=== PATIENT | male | born 1985 | race Caucasian/White ===

== ENCOUNTER 2019-06-20 07:41 | Day surgery (SDC) | payer OTHER ==
[~2019-06-20] VITALS: Ht 175.3 cm; Wt 117.4 kg
[~2019-06-20 07:41] MED LIST: AMOX500 PO; ATOMOXETINE HCL80 MG PO; CONCERTA 54 MG; DOCU100 PO; HYDACE5 PO; IBUP200 PO; INDO25 PO; KETO10 PO; METF500C PO; NAPR500 PO; OXYACE5T PO; PENVK250 PO; PENVK500 PO; PROM25 PO; RXHYDACE PO; RXOXYACE PO; RXTRAM50 PO; SULTRIDS PO; THERA-D2000 UNIT PO; TRAM50 PO
== END 2019-06-20 10:55 | disposition home or self-care (01) ==
LOC: ORSCSDS 07:41
PROVIDERS: Student in an Organized Health Care Education/Training Program
PROC: 0DBE8ZX Excision of Large Intestine, Via Natural or Artificial Opening Endoscopic, Diagnostic (ICD-10-PCS; principal; 2019-06-20 10:45)
DX: K62.5 Hemorrhage of anus and rectum (principal); R19.7 Diarrhea, unspecified; K64.8 Other hemorrhoids; E11.9 Type 2 diabetes mellitus without complications; E66.01 Morbid (severe) obesity due to excess calories; Z68.41 Body mass index [BMI] 40.0-44.9, adult; Z79.84 Long term (current) use of oral hypoglycemic drugs; Z79.899 Other long term (current) drug therapy
CPT/HCPCS: 82947; 88305; J2704; J7120

== ENCOUNTER 2022-07-09 10:49 | Emergency (ER) | payer OTHER ==
[~2022-07-09] VITALS: Ht 175.3 cm; Wt 117.9 kg
[~2022-07-09 10:49] MED LIST changes: +IBUP800 PO; +LIDO700A20 TOP; +Seroquel Xr50 MG PO; +ZYRTEC10 M4 PO
[2022-07-09 12:30] LABS: C-REACTIVE PROTEIN, EXT RANGE 4.02 mg/dL (0.000-0.300)
[2022-07-09 12:31] LABS: Albumin/Globulin Ratio 0.9 (0.8-1.8); Bilirubin, Total 0.5 mg/dL (0.1-1.0); Bun/Creatinine Ratio 20.6 (12.0-20.0); Calcium, Blood 9.4 mg/dL (8.5-10.1); Creatinine, Blood 0.73 mg/dL (0.60-1.20); Globulin, Blood 4.6 g/dL (2.2-4.0); Potassium, Blood 4.2 mmol/L (3.5-5.5); Total Protein, Blood 8.6 g/dL (6.4-8.2)
[2022-07-09 12:48] LABS: BASOPHILS ABSOLUTE AUTO 0.07 K/mm3 (0.00-0.23); BASOPHILS PERCENT AUTO 1 % (0-2); EOSINOPHILS PERCENT AUTO 2 % (0-6); Hematocrit 43.7 % (37.0-53.0); Hemoglobin 14.6 g/dL (13.5-17.5); IMMATURE GRAN ABSOLUTE AUTO 0.03 K/mm3 (0.00-0.10); IMMATURE GRAN PERCENT AUTO 0 % (0-1); LYMPHOCYTES ABSOLUTE AUTO 2.74 K/mm3 (0.84-5.20); LYMPHOCYTES PERCENT AUTO 33 % (21-46); MONOCYTES ABSOLUTE AUTO 0.87 K/mm3 (0.16-1.47); MONOCYTES PERCENT AUTO 11 % (4-13); Mean Corpuscular HGB Conc 33.4 g/dL (31.5-36.5); Mean Corpuscular Volume 81 fL (80-100); NEUTROPHILS ABSOLUTE AUTO 4.33 K/mm3 (1.96-9.15); NEUTROPHILS PERCENT AUTO 53 % (41-73); Platelet Count 204 K/mm3 (150-400); RDW Coefficient Variation 13.2 % (11.7-14.2); RDW Standard Deviation 38.6 fL (35.1-46.3); White Blood Cell Count 8.24 K/mm3 (4.00-11.30)
[2022-07-09] MEDS ORDERED: Percocet 5-3251 EACH PO (18:06)
== END 2022-07-09 18:18 | disposition home or self-care (01) ==
LOC: ER 10:49
PROVIDERS: Student in an Organized Health Care Education/Training Program
DX: M79.89 Other specified soft tissue disorders (principal); Z79.899 Other long term (current) drug therapy; Z79.84 Long term (current) use of oral hypoglycemic drugs
CPT/HCPCS: 73140; 73221; 80053; 85025; 85651; 86140; 96374; 99284-25; A9270; J1885

== ENCOUNTER → 2022-08-01 | Outpatient (CLI) | payer OTHER ==
[~2022-08-01] MED LIST changes: +Percocet 5-3251 EACH PO
== END | disposition home or self-care (01) ==
LOC: LAB SHORT 16:24 → LAB 16:24
DX: R22.31 Localized swelling, mass and lump, right upper limb (principal)
CPT/HCPCS: 84550; 85651; 86430

== ENCOUNTER 2022-08-08 04:06 | Emergency (ER) | payer OTHER ==
[~2022-08-08] VITALS: Ht 172.7 cm; Wt 99.8 kg
[2022-08-08 04:33] LABS: BASOPHILS ABSOLUTE AUTO 0.11 K/mm3 (0.00-0.23); BASOPHILS PERCENT AUTO 1 % (0-2); EOSINOPHILS ABSOLUTE AUTO 0.85 K/mm3 (0.00-0.68); EOSINOPHILS PERCENT AUTO 7 % (0-6); Hemoglobin 14.6 g/dL (13.5-17.5); IMMATURE GRAN ABSOLUTE AUTO 0.03 K/mm3 (0.00-0.10); IMMATURE GRAN PERCENT AUTO 0 % (0-1); LYMPHOCYTES PERCENT AUTO 28 % (21-46); MONOCYTES ABSOLUTE AUTO 0.84 K/mm3 (0.16-1.47); MONOCYTES PERCENT AUTO 7 % (4-13); Mean Corpuscular Volume 80 fL (80-100); Mean Platelet Volume 9.3 fL (9.1-12.4); NEUTROPHILS ABSOLUTE AUTO 6.56 K/mm3 (1.96-9.15); NEUTROPHILS PERCENT AUTO 57 % (41-73); Platelet Count 227 K/mm3 (150-400); RDW Coefficient Variation 12.3 % (11.7-14.2); RDW Standard Deviation 35.1 fL (35.1-46.3); White Blood Cell Count 11.59 K/mm3 (4.00-11.30)
[2022-08-08 04:46] LABS: Source, Urine Clean Catch
[2022-08-08 04:56] LABS: Albumin, Blood 3.6 g/dL (3.4-5.0); Albumin/Globulin Ratio 0.8 (0.8-1.8); Bilirubin, Total 0.4 mg/dL (0.1-1.0); Bun/Creatinine Ratio 13.3 (12.0-20.0); Calcium, Blood 9.2 mg/dL (8.5-10.1); Creatinine, Blood 0.98 mg/dL (0.60-1.20); Globulin, Blood 4.3 g/dL (2.2-4.0); Potassium, Blood 3.4 mmol/L (3.5-5.5); Total Protein, Blood 7.9 g/dL (6.4-8.2)
[2022-08-08 04:58] LABS: Appearance, Urine Clear (Clear); Bilirubin, Urine Neg (Neg); Blood, Urine 4+ (Neg); Color, Urine Yellow (P-Yellow); Glucose Qualitative, Urine 2+ (Neg); Ketones, Urine Neg (Neg); Leukocyte Esterase, Urine Neg (Neg); Nitrite, Urine Neg (Neg); Protein, Urine 2+ (Neg); Urobilinogen, Urine NORM (Normal)
[2022-08-08 05:09] LABS: Bacteria Few /hpf; Squamous Epithelial Cells Few /hpf (Few); Trichomonas Few /hpf; White Blood Cells, Urine 0-2 /hpf (0-5)
[2022-08-08 05:10] LABS: U Amphetamine Screen Not Detected; U Barbituate Screen Not Detected; U Benzodiazapine Screen Not Detected; U Buprenorphine Screen Not Detected; U Cannabinoids Screen Not Detected; U Cocaine Screen Not Detected; U Methadone Screen Not Detected; U Methamphetamine Screen Not Detected; U Opiates Screen Not Detected; U Oxycodone Screen Not Detected; U Phencyclidine Screen Not Detected; U Propoxyphene Screen Not Detected
[2022-08-08] MEDS ORDERED: Percocet 5-3251 EACH PO (05:26)
[2022-08-08] MEDS ORDERED: TAMS.4ER PO (05:26)
[2022-08-08] MEDS ORDERED: METR500 PO (05:26)
[2022-08-08 06:05] VITALS: BP 120/68
== END 2022-08-08 06:52 | disposition home or self-care (01) ==
LOC: ER 04:06
PROVIDERS: Emergency Medicine
DX: N13.2 Hydronephrosis with renal and ureteral calculous obstruction (principal); A59.9 Trichomoniasis, unspecified; E11.9 Type 2 diabetes mellitus without complications; Z79.899 Other long term (current) drug therapy; Z79.84 Long term (current) use of oral hypoglycemic drugs
CPT/HCPCS: 36415; 74177; 80053; 81001; 83605; 83690; 85025; 93005; 93010; 96374-59; 96375; 99284-25; A9270; J1170; J1790; J1885; J2405; Q9967

== ENCOUNTER → 2023-05-31 | Outpatient (CLI) | payer OTHER ==
[~2023-05-31] MED LIST changes: +METR500 PO; +TAMS.4ER PO
== END | disposition home or self-care (01) ==
LOC: LAB SHORT 17:00
DX: E11.9 Type 2 diabetes mellitus without complications (principal)
CPT/HCPCS: 82043

== ENCOUNTER → 2023-09-18 | Outpatient (CLI) | payer OTHER | LOC: LAB SHORT 12:15 → LAB 12:15 | DX: E55.9 Vitamin D deficiency, unspecified (principal) | CPT/HCPCS: 82306 ==

== ENCOUNTER 2024-05-03 09:48 | Emergency (ER) | payer OTHER ==
[~2024-05-03] VITALS: Ht 175.3 cm; Wt 108.9 kg
[2024-05-03 10:20] VITALS: BP 141/77
[2024-05-03] MEDS ORDERED: IBUP600 PO (10:29)
[2024-05-03] MEDS ORDERED: FAMO20 PO (10:29)
== END 2024-05-03 10:30 | disposition home or self-care (01) ==
LOC: ER 09:48
DX: K08.89 Other specified disorders of teeth and supporting structures (principal); Z79.899 Other long term (current) drug therapy; Z79.84 Long term (current) use of oral hypoglycemic drugs
CPT/HCPCS: 99282

== ENCOUNTER 2024-08-21 07:55 | Day surgery (SDC) | payer OTHER ==
[~2024-08-21] VITALS: Ht 175.3 cm; Wt 110.4 kg
[~2024-08-21 07:55] MED LIST changes: +FAMO20 PO; +IBUP600 PO
[2024-08-21] MEDS ORDERED: CeFAZolin Sodium 2,000 MG VIAL ONE (08:34)
[2024-08-21] MEDS ORDERED: Lactated Ringer's 1,000 ML IV ONE ×2 (09:20→10:41)
[2024-08-21] MEDS ORDERED: STEGLATRO5 MG PO (09:24)
[2024-08-21] MEDS ORDERED: LOSA25 PO (09:24)
[2024-08-21] MEDS ORDERED: propofoL 20 ML IV ONE ×2 (09:33→09:36)
[2024-08-21] MEDS ORDERED: FentaNYL Citrate 50 MCG/ML 2 ML Injection ONE (09:33)
[2024-08-21] MEDS ORDERED: Dexamethasone Sod Phos 10 MG/ML 1ML VIAL ONE (09:34)
[2024-08-21] MEDS ORDERED: Midazolam HCl 1MG / ML 2ML Vial ONE (09:34)
[2024-08-21] MEDS ORDERED: Ondansetron HCl 2 MG / ML 2ML Vial ONE (10:07)
[2024-08-21] MEDS ORDERED: Lidocaine 2%-Epineph 1:100000 20 ML MDV ONE (10:08)
[2024-08-21] MEDS ORDERED: EPINEPhrine HCl 1 MG/ML 1ML Amp ONE (10:08)
[2024-08-21 11:28] VITALS: BP 126/84
== END 2024-08-21 11:21 | disposition home or self-care (01) ==
LOC: ORSCSDS 07:55
PROVIDERS: Orthopaedic Surgery
PROC: 0SBD4ZZ Excision of Left Knee Joint, Percutaneous Endoscopic Approach (ICD-10-PCS; principal; 2024-08-21 09:45)
DX: M67.52 Plica syndrome, left knee (principal); I10 Essential (primary) hypertension; K21.9 Gastro-esophageal reflux disease without esophagitis; R73.03 Prediabetes; E66.9 Obesity, unspecified; Z68.35 Body mass index [BMI] 35.0-35.9, adult; Z79.899 Other long term (current) drug therapy; Z79.84 Long term (current) use of oral hypoglycemic drugs
CPT/HCPCS: 82947; J0171; J0690; J1100; J2250; J2405; J2704; J3010; J7120

== ENCOUNTER → 2024-12-24 | Outpatient (CLI) | payer OTHER ==
[~2024-12-24] MED LIST changes: +LOSA25 PO; +STEGLATRO5 MG PO
[2024-12-24 18:28] LABS: Creatinine, Urine Random 39.3 mg/dL (27.00-270.00); Protein, Urine Random 7.7 mg/dL (0.0-11.9); Protein/Creat Ratio, Ur Random 0.2
== END ==
LOC: LAB SHORT 16:08 → LAB 16:08
DX: E11.9 Type 2 diabetes mellitus without complications (principal)
CPT/HCPCS: 82570; 84156